=== PATIENT | female | born 2005 | race Caucasian/White ===

== ENCOUNTER 2025-05-04 15:17 | Emergency (ER) | payer BC, SELFPAY ==
[2025-05-04 15:30] VITALS: BP 123/71
[2025-05-04 15:57] LABS: HCG, Serum Qualitative Screen Negative
[2025-05-04 16:02] LABS: Hematocrit 42.8 % (37.0-47.0); Hemoglobin 15.0 g/dL (12.0-16.0); Mean Corp Hgb Conc. 35.0 g/dL (33.0-37.0); Mean Corpuscular Volume 83.1 fL (81.0-99.0); Nucleated Red Blood Cells % 0 %; Platelet Count 274 10^3/uL (130-400); Red Cell Dist. Width 11.5 % (11.5-14.5)
[2025-05-04 16:03] LABS: ALT (SGPT) 26 U/L (0-35); AST (SGOT) 19 U/L (14-36); Albumin 4.5 g/dl (3.5-5.0); Alkaline Phosphatase 58 U/L (38-126); Blood Urea Nitrogen 9 mg/dl (7-17); Calcium 9.1 mg/dl (8.4-10.2); Carbon Dioxide 20 mmol/L (22-30); Chloride 104 mmol/L (98-107); Glucose 101 mg/dl (70-99); Lipase 83 U/L (23-300); Potassium 4.0 mmol/L (3.5-5.1); Sodium 136 mmol/L (135-145); Total Protein 7.3 g/dl (6.3-8.2); eGFR > 60.00
[2025-05-04] MEDS: NSS 1000 IV (17:29)
[2025-05-04] MEDS: TORADOL 15 MG IV (17:29)
[2025-05-04] MEDS: PEPCID 20 MG IV (17:30)
[2025-05-04 18:00] LABS: COVID-19 Antigen Negative (Negative)
[2025-05-04 19:34] VITALS: BP 106/69
[2025-05-04] MEDS: ZOFRAN ODT (ORALLY DISINTEGRATING) 4 MG PO (19:51)
--- NOTE | 2025-05-04 20:48 | ED.GENMED ---
History of Present Illness
General
Chief Complaint: Abdominal Pain
Source: patient
Exam Limitations: none
Time Seen by Provider: 05/04/25 16:48
Nursing documentation reviewed up to this point in time: agreed with
History of Present Illness
History of Present Illness:
Patient is a 20-year-old female who presents to the emergency department for evaluation of upper abdominal discomfort associated with nausea, vomiting, and diarrhea which started this morning. Patient woke up at 4AM this morning with nausea and
vomiting. She also describes upper abdominal discomfort described as a 'cramping'. Her last episode of vomiting was around 6:30AM however now she has started having episodes of nonbloody diarrhea.
She reports feeling lightheaded and dehydrated. No dysuria. No fevers. No radiation of pain to back.
No known sick contacts.
Review of Systems
Review of Systems
Allergies reviewed?: Yes
All Other Systems: ROS reviewed and negative except as documented in HPI and ROS
Phy Exam
Physical Exam
Physical Exam:
Vitals: Tachycardiac on arrival, otherwise vitals stable. Afebrile.
General: No acute distress
Skin: Warm and dry, no rashes or lesions
Eyes: Sclera nonicteric.
Throat: Protecting airway
Neck: Normal ROM, no meningismus
Cardiac: Tachycardic, regular rhythm, no murmurs.
Pulm: Normal respiratory effort. Lungs clear.
Abdomen: Nondistended. Abdomen soft with mild tenderness in epigastric region w/o rebound or guarding. Negative Campos sign. No focal tenderness at McBurneys point.
Neuro: AAOx3. Grossly intact.
Psychiatric: Normal affect.
Course
Orders/Labs/Results
Orders:
Orders
05/04/25 15:33
IV Insert/Care/Rem.- Treatment PRN
05/04/25 15:34
Test Result ONCE
05/04/25 15:39
Complete Blood Count/With Diff Urgent
Comprehensive Metabolic Panel Urgent
HCG, Serum Qualitative Screen Urgent
Comment: Notify provider if positive test present
Lipase Urgent
05/04/25 17:09
0.9% Sodium Chloride 1000 ml [Nss] 1,000 ml IV BOLUS
Famotidine [Pepcid] 20 mg IV NOW STA
Ketorolac [Toradol] 15 mg IV NOW STA
05/04/25 17:23
COVID-19 Antigen Urgent
Source: Nasal Swab
Influenza A+B Rapid Molecular Urgent
STEVEN Source: Nasal Swab
Specimen Description:
05/04/25 19:46
Ondansetron Orally Disint [Zofran Odt (Orally Disintegrating)] 4 mg PO NOW STA
05/04/25 19:47
Ondansetron Orally Disint [Zofran Odt (Orally Disintegrating)] 4 mg .ROUTE .[facility]
Abnormal Lab Results
05/04/25
15:39
Absolute Lymphs (auto) 0.5 L 10^3/uL
(1.2-3.4)
Neutrophils % 87.8 H %
(42.2-75.2)
Lymphocytes % 6.6 L %
(20.5-51.1)
Carbon Dioxide 20 L mmol/L
(22-30)
Glucose 101 H mg/dl
(70-99)
05/04/25 15:39
05/04/25 15:39
Vital Signs
Initial and Last Documented VS:
Initial Vital Signs
Temp Pulse Resp BP Pulse Ox
98.4 F 111 20 123/71 99
05/04/25 15:30 05/04/25 15:30 05/04/25 15:30 05/04/25 15:30 05/04/25 15:30
Last Documented Vital Signs
Temp Pulse Resp BP Pulse Ox
98.4 F 102 16 106/69 100
05/04/25 15:30 05/04/25 19:34 05/04/25 19:34 05/04/25 19:34 05/04/25 20:48
MDM/Problems Addressed
Differential Diagnosis Includes:
Not limited to: viral gastroenteritis, gastritis, colitis, pancreatitis, GERD, acute appendicitis, biliary colic, etc
MDM/Problems Addressed:
20-year-old female presenting with 1 day of nausea, vomiting, and diarrhea. On arrival, patient was mildly tachycardic but afebrile and hemodynamically stable. Abdominal exam notable for mild epigastric tenderness without rebound, guarding, or
peritoneal signs. No focal right lower quadrant pain or other exam findings concerning for acute surgical abdomen.
Differential diagnosis included viral gastroenteritis, gastritis, dehydration, and less likely acute intra-abdominal pathology such as appendicitis, cholecystitis,etc.
Given benign abdominal exam, lack of fever, reassuring vital signs aside from mild tachycardia, and absence of leukocytosis or other acute laboratory abnormalities, suspicion for acute intra-abdominal infection or surgical pathology was low.
Patient was treated symptomatically with IV fluids, Toradol, and Pepcid. On reassessment, patient reported resolution of nausea and significant improvement in abdominal discomfort She is tolerating oral intake without difficulty.
CT imaging of the abdomen and pelvis was discussed with the patient. Through shared decision-making, given clinical improvement, reassuring exam, decision was made to defer imaging at this time.
Will discharge with supportive care instructions, oral hydration, and symptomatic management. Strict return precautions discussed.
Chronic conditions affecting care:
N/A
Acute Exacerbation and/or Progression of Chronic Illness:
N/A
*Pulse Oximetry
SaO2: 100
Oxygen Mode of Delivery: Room air
Patient hypoxic: no
*EKG
Interpreted by ED Provider?: NA
*Air Bag Buffer Interpretation
Rate: Air Bag Buffer- N/A
*Critical Care Note
Total Time (30-74mins, 75-104mins- exclusive of procedures): Not Applicable
ED Attending Note
-
Portions of this chart may have been created with voice recognition software.� Occasional wrong word or��sound alike� substitutions may have occurred due to the inherent limitations of voice recognition software.
Discharge Plan
Departure
Patient Disposition: Home (Routine Discharge)
Date of Disposition: 05/04/25
Time of Disposition: 19:35
Patient with high blood pressure during this ER visit?: No
Condition: Good
Covid-19: Negative COVID-19
Discharge Problem:
Nausea, vomiting and diarrhea
Instructions: Diarrhea in teens and adults, Nausea and Vomiting, Adult (DC)
Prescriptions:
New
ondansetron 4 mg tablet,disintegrating
4 mg PO Q8H PRN (Reason: nausea and vomiting) Qty: 10 0RF
Referrals:
NONE,* [Family Provider, Internal Medicine]
Stand Alone Forms: Return to Work
Activity Restrictions/Additional Instructions:
RETURN TO THE EMERGENCY DEPARTMENT ANY FEVER, CHILLS, INTRACTABLE NAUSEA/VOMITING, PERSISTENT ABDOMINAL PAIN OR LACK OF APPETITE, WORSENING CURRENT SYMPTOMS, OR ANY OTHER CONCERNS
- As discussed your lab work performed in the emergency department showed no clinically significant abnormalities. I suspect you likely have a viral gastroenteritis.
- Take Tylenol and/or Motrin as needed for pain. A prescription for Zofran has been sent to your pharmacy for persistent nausea. I would recommend a bland diet over the next 2 days and slowly advance as tolerated. It is important stay
well-hydrated
- Follow-up with your primary care provider for further evaluation/management to ensure that your symptoms are improving
Monitor your symptoms closely and return to the emergency department with any acute worsening/new symptoms or any other concerns
Interventions
Interventions:
*General Assessment Last Done: 05/04/25 15:30
*Neglect/Abuse Screening Last Done: 05/04/25 15:30
*ED COVID-19 Vaccine History Last Done: 05/04/25 15:30
*ED Influenza Vaccine History Last Done: 05/04/25 15:30
[facility] Risk Assessment Tool Last Done: 05/04/25 17:39
*Risk Screen - Suicide (C-SSRS) Last Done: 05/04/25 15:30
*Nursing Disposition Last Done: 05/04/25 20:11
FD-Uswurh-Iukdfdygat Assessment Last Done: 05/04/25 17:33
Discharge Date and Time
Discharge Date/Time: 05/04/25 20:11
Print Language: DANISH
== END 2025-05-04 20:11 | disposition home or self-care (01) ==
LOC: EMR 15:17
PROVIDERS: Emergency Medicine; Physician Assistant; EMERGENCY PHYSICIAN Emergency Medicine
DX: R11.2 Nausea with vomiting, unspecified (principal); R19.7 Diarrhea, unspecified; R10.10 Upper abdominal pain, unspecified; R42 Dizziness and giddiness; Z11.52 Encounter for screening for COVID-19
CPT/HCPCS: 99284; 96374; 96375; 96361 ×2; 80053; 83690; 84703; 85025; 87502; 87811